=== PATIENT | female | born 1930 | race Hispanic/Latino ===

== ENCOUNTER 2017-01-21 10:25 | Outpatient (CLI) | payer MEDICARE, MEDICAID ==
[2017-01-21 13:59] LABS: #Eosinphils 0.4 thou/uL (0.0-0.7); #Lymphocytes 1.8 thou/uL (1.20-3.40); #Monocytes 0.4 thou/uL (0.11-0.59); #Neutrophils 2.6 thou/uL (1.40-6.50); %Basophils 0.7 % (0.0-1.0); %Eosinophils 7.5 % (0.0-10.0); %Lymphocytes 33.5 % (21.0-51.0); %Monocytes 8.3 % (0.0-10.0); Hematocrit 38.7 % (36.0-47.0); Mean Platelet Volume 8.9 fL (7.4-10.4); Red Blood Cell (RBC) Count 4.01 mill/uL (4.20-5.40); White Blood Cell (WBC) Count 5.2 thou/uL (4.8-10.8)
[2017-01-21 14:25] LABS: Anion Gap 8 mmol/L (10-20); BUN (Urea Nitrogen) 18 mg/dL (9.8-20.1); Calc. Creatinine Clearance 0 mL/min (70-130); Calcium 9.6 mg/dL (7.8-10.44); Carbon Dioxide 30 mmol/L (23-31); Chloride 104 mmol/L (98-107); Estimated GFR-MDRD Greater than 90
--- NOTE | 2017-01-22 16:05 | EKG ---
Test Reason : PREOP Blood Pressure : / mmHG Vent. Rate : 056 BPM Atrial Rate : 056 BPM P-R Int : 174 ms QRS Dur : 080 ms QT Int : 418 ms P-R-T Axes : 051 001 015 degrees QTc Int : 403 ms Sinus bradycardia with sinus arrhythmia Otherwise normal ECG When compared with ECG of 21-MAY-2016 20:43, No significant change was found Confirmed by DR. Zulema DIMAS ([id number]) on 01/22/2017 4:05:04 PM Referred By: JONAS Confirmed By:DR. Zulema DIMAS
== END 2017-01-21 10:26 | disposition home or self-care (01) ==
LOC: LABBT 10:25
PROVIDERS: ATTEND Surgery
DX: Z01.812 Encounter for preprocedural laboratory examination (principal); C50.912 Malignant neoplasm of unspecified site of left female breast
CPT/HCPCS: 80048; 85025; 93005; 93010

== ENCOUNTER 2017-01-22 07:27 | Day surgery (SDC) | payer MEDICARE, MEDICAID ==
[2017-01-21 10:52] VITALS: BMI 27.9
[2017-01-22] MEDS ORDERED: Isosulfan Blue 50 MG/5 ML VIAL ONE (10:59)
[2017-01-22] MEDS ORDERED: Fentanyl 100 MCG/2 ML VIAL ONE ×4 (11:24→15:07)
[2017-01-22] MEDS ORDERED: ePHEDrine/0.9% NaCl/PF SYRINGE 50 mg/10 ml ONE (11:37)
[2017-01-22] MEDS ORDERED: Glycopyrrolate 0.2 MG/ML 5 ML SYRINGE ONE (11:37)
[2017-01-22] MEDS ORDERED: Propofol 200 MG/20 ML VIAL ONE (11:37)
[2017-01-22] MEDS ORDERED: Ondansetron HCl/PF 4 MG/2 ML Vial ONE (11:37)
[2017-01-22] MEDS ORDERED: Dexamethasone 20 MG/5 ML VIAL ONE (11:37)
[2017-01-22] MEDS ORDERED: Lidocaine 2% PF 10 ML AMP (For Epidural Use) ONE (11:37)
--- NOTE | 2017-01-22 11:40 | NM ---
NUCLEAR MEDICINE LYMPHOSCINTIGRAPHY: Date: 01/22/17 HISTORY: 86-year-old female with malignant neoplasm, unspecified site left breast. Bilateral simple mastectom ies. TECHNIQUE/FINDINGS: The patient was injected with 0.440 mCi technetium-99m filtered sulfur colloid subcutaneously in fou r separate locations around the areola. Follow-up imaging demonstrates an intense focus of increased activity within adjacent axillary lymph node. In addition, there is some subtle somewhat more diffuse increased activity extending somewhat cranially, probably in small lymph nodes in the more superior portion of the axilla. IMPRESSION: Successful lymphoscintigraphy. POS: [facility]
[2017-01-22] MEDS ORDERED: Bupivacaine 0.25% HCL 30 ML VIAL ONE (12:04)
[2017-01-22] MEDS ORDERED: Lidocaine 2% w/Epinephrine 1:200K 20 ML VIAL ONE (12:04)
[2017-01-22] MEDS ORDERED: Promethazine HCl 25 MG/ML VIAL IM PRN (14:47)
[2017-01-22] MEDS ORDERED: Promethazine HCl 25 MG/ML VIAL SLOW IVP PRN (14:47)
[2017-01-22] MEDS ORDERED: Ondansetron HCl/PF 4 MG/2 ML Vial IVP PRN (14:47)
[2017-01-22] MEDS ORDERED: hydrALAZINE 20 MG/ML VIAL ONE (15:26)
[2017-01-22] MEDS ORDERED: Fentanyl 100 MCG/2 ML VIAL SLOW IVP PRN (15:49)
[2017-01-22] MEDS ORDERED: traMADol HCl 50 MG TAB PO PRN ×2 (15:49)
[2017-01-22] MEDS ORDERED: hydrALAZINE 20 MG/ML VIAL SLOW IVP SCH (16:00)
[2017-01-22] MEDS: Acetaminophen 1,000 MG in Premix Bag 1 BAG IVPB SCH ×2 (18:36→23:43)
[2017-01-23] MEDS: Acetaminophen 1,000 MG in Premix Bag 1 BAG IVPB SCH ×2 (05:17→11:41)
[2017-01-23 12:57] VITALS: BP 125/78; TEMP 98
--- NOTE | 2017-01-29 18:52 | PDOC.OP ---
Operative Note - Operative Note Operative Note: PROCEDURE: Bilateral mastectomy and left sentinel lymph node biopsy DATE OF PROCEDURE: 01/22/2017 SURGEON: Jae Pineda M.D. 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 Her daughter of breast cancer in her 50s and the patient has decided to proceed with bilateral mastectomy, with sentinel lymph node biopsy on the left for staging. PROCEDURE IN DETAIL: After informed consent was obtained and lymphoscintigraphy performed and reviewed, the patient was taken to the operating room she was placed in supine position and anesthesia by LMA was administered. Appropriate preoperative antibiotic were administered and literature and injected behind the left areola and the breast massaged for 5 minutes. The patient was then prepped and draped in the standard sterile fashion and right mastectomy performed. An elliptical incision including the nipple areolar complex was created and flaps raised superiorly to the level of the clavicle, inferiorly to the level of the rectus sheath and medially to the level of the sternum. The breast tissue was then dissected free of the pectoralis in a medial to lateral fashion and marked for orientation with a long lateral and short superior suture. The wound was irrigated and hemostasis obtained using Bovie electrocautery. A ROC drain was placed laterally and secured to the skin. The subcutaneous tissues and deep dermis were reapproximated with interrupted figure -of-eight Vicryl sutures and the skin was closed with skin herbert. Attention was then turned to the left sentinel lymph node biopsy. Local anesthesia was infused the skin and subcutaneous tissues over the lower edge of the hairbearing skin of the left axilla. An incision was made and dissection carried down to the true axilla. A blue lymph node with increased activity was identified dissected free and sent as sentinel lymph node #1. A second blue lymph node with increased activity was identified dissected free and sent as sentinel lymph node #2. Increased activity was identified and the soft tissues adjacent to sentinel lymph node #2 and 2 separate areas and 2 tiny lymph nodes identified and dissected free. These had increased counts but were not blue. No other areas of significantly increased activity were identified and no other blue lymph nodes or abnormal feeling or looking lymph nodes were noted. The wound was irrigated and examined for hemostasis. The subcutaneous tissues were closed with 3-0 Monocryl sutures and the skin was closed with skin herbert. Attention was then turned to the left mastectomy which was performed in identical manner to the right mastectomy. The left breast was also marked with a long lateral and short superior suture. The skin incisions were dressed with Xeroform and gauze and pressure dressings were placed and secured with Shubham wrap. The patient was extubated and taken to the recovery room in good condition. Estimated blood loss was 50 ml. There were no complications. Specimens are bilateral breasts and left sentinel lymph nodes 4.
== END 2017-01-23 13:02 | disposition home or self-care (01) ==
LOC: SDC 07:27 → SURG A 14:55 → SJJU 16:00 → SDC 01-23 13:02
PROVIDERS: ATTEND Surgery
PROC: 0HTV0ZZ Resection of Bilateral Breast, Open Approach (ICD-10-PCS; principal; 2017-01-22)
PROC: 07B63ZX Excision of Left Axillary Lymphatic, Percutaneous Approach, Diagnostic (ICD-10-PCS; 2017-01-22)
DX: D05.12 Intraductal carcinoma in situ of left breast (principal); I10 Essential (primary) hypertension; F32.9 Major depressive disorder, single episode, unspecified; K21.9 Gastro-esophageal reflux disease without esophagitis; E11.9 Type 2 diabetes mellitus without complications; E78.00 Pure hypercholesterolemia, unspecified; N60.91 Unspecified benign mammary dysplasia of right breast; D24.1 Benign neoplasm of right breast; Z79.84 Long term (current) use of oral hypoglycemic drugs; Z79.899 Other long term (current) drug therapy; Z88.6 Allergy status to analgesic agent; Z88.5 Allergy status to narcotic agent; Z88.0 Allergy status to penicillin; Z88.8 Allergy status to other drugs, medicaments and biological substances; Z96.1 Presence of intraocular lens; Z98.42 Cataract extraction status, left eye; Z98.41 Cataract extraction status, right eye; Z90.3 Acquired absence of stomach [part of]; Z90.49 Acquired absence of other specified parts of digestive tract; Z90.710 Acquired absence of both cervix and uterus; Z98.890 Other specified postprocedural states; Z87.891 Personal history of nicotine dependence
CPT/HCPCS: 19303; 38500; 38900; 78195; 88307; 88309; 88333; 88342; A9541; Q9968; J0131; J0360; J1100; J2001; J2405; J2704; J3010; S0020

== ENCOUNTER 2017-03-14 13:21 | Emergency (ER) | payer MEDICARE, MEDICAID ==
--- NOTE | 2017-03-14 14:21 | RAD ---
AP VIEW CHEST: Date: 03/14/17 HISTORY: Chest pain. FINDINGS: Comparison made to previous exam from 10/10/16. AP view of chest demonstrates left axillary surgical clips seen. The lungs are well aerated. No evide nce of active intrathoracic disease is seen. No evidence of effusions, pneumonia, or pneumothorax see n. Calcification of aorta is noted. IMPRESSION: Left axillary surgical clips. Otherwise unremarkable AP view of chest. POS: [facility]
[2017-03-14 14:46] LABS: #Eosinphils 0.3 thou/uL (0.0-0.7); #Lymphocytes 1.9 thou/uL (1.20-3.40); #Monocytes 0.5 thou/uL (0.11-0.59); #Neutrophils 2.6 thou/uL (1.40-6.50); %Basophils 0.8 % (0.0-1.0); %Eosinophils 6.5 % (0.0-10.0); %Lymphocytes 34.9 % (21.0-51.0); %Monocytes 8.5 % (0.0-10.0); Hematocrit 38.9 % (36.0-47.0); Mean Platelet Volume 8.5 fL (7.4-10.4); Red Blood Cell (RBC) Count 4.02 mill/uL (4.20-5.40); White Blood Cell (WBC) Count 5.3 thou/uL (4.8-10.8)
[2017-03-14 14:54] LABS: PTT 35.1 SEC (22.9-36.1); Prothrombin Time 14.1 SEC (12.0-14.7)
[2017-03-14 15:02] LABS: Lactic Acid - Sepsis 2.6 mmol/L (0.5-2.2)
[2017-03-14 15:07] LABS: ALT (SGPT) 13 U/L (8-55); AST (SGOT) 17 U/L (5-34); Alkaline Phosphatase 45 U/L (40-150); Anion Gap 12 mmol/L (10-20); BUN (Urea Nitrogen) 15 mg/dL (9.8-20.1); Bilirubin, Total 1.6 mg/dL (0.2-1.2); CK (CPK) 32 U/L (29-168); Calc. Creatinine Clearance 0 mL/min (70-130); Calcium 9.5 mg/dL (7.8-10.44); Carbon Dioxide 26 mmol/L (23-31); Chloride 105 mmol/L (98-107); Estimated GFR-MDRD 80; Globulin 2.9 g/dL (2.4-3.5); Lipase 36 U/L (8-78); Protein, Total 6.9 g/dL (6.0-8.3)
[2017-03-14 15:12] LABS: Troponin I Less than 0.010 ng/mL (< 0.028)
--- NOTE | 2017-03-14 15:18 | CT ---
CT BRAIN: Date: 03/14/17 HISTORY: Weakness, dizziness, and altered mental status. FINDINGS: Noncontrast enhanced CT images of the brain demonstrate the brain to be unremarkable. No evidence of intracranial masses, hemorrhages, strokes, or contusions seen. IMPRESSION: Normal CT brain. POS: [facility]
[2017-03-14 15:47] LABS: Bilirubin Negative (Negative); Blood, Urine Negative (Negative); Glucose, Urine (Dipstick) Negative (Negative); Ketone, Urine Negative (Negative); Nitrite Negative (Negative); Protein, Urine (Dipstick) Negative (Neg-Trace); Urobilinogen 0.2 mg/dL (0.2-1.0)
[2017-03-14] MEDS ORDERED: Clopidogrel Bisulfate 75 MG TAB ONE ×2 (16:46→16:49)
[2017-03-14] MEDS ORDERED: Nitroglycerin 2% Ointment 1 INCH/1 GM Packet ONE ×2 (16:46→16:49)
[2017-03-14] MEDS ORDERED: Famotidine 20 MG TAB PO SCH (21:00)
[2017-03-14] MEDS ORDERED: PARoxetine 20 MG TAB PO SCH (21:00)
[2017-03-14] MEDS ORDERED: Atorvastatin Calcium 20 MG TAB PO SCH (21:00)
--- NOTE | 2017-03-15 04:25 | SS ---
PRIMARY CARE PHYSICIAN: Dr. Dm Conway CHIEF COMPLAINT: Dizziness and chest pressure, nausea. HISTORY OF PRESENT ILLNESS: This is an 86-year-old female patient of Dr. Dm Conway's with a history of breast cancer status post bilateral mastectomy, type 2 diabetes, hypertension, and hyperlipidemia who presented to the emergency department today with onset of dizziness. The family and patient stat e that she has been in her usual state of health and usually is very active and able to lift up her g randkids until this morning at about 1:00 a.m. when she tried to get out of bed and had a hard time m oving her head. She was still awake and alert. She denied loss of consciousness. She could moves a ll extremities, but just had a hard time with dizziness and getting herself out of bed. The symptoms resolved spontaneously after a few minutes and then recurred every time she would move her head to t he right. She denied any nausea, vomiting. She denied any diarrhea. Denied chest pain, denied shor tness of breath. She has had on and off episodes of chest pressure, but has a history of severe pept ic ulcer disease, status post gastrectomy. In the emergency department, she had a workup done, every thing was normal. She had a normal CT of the brain, normal EKG, normal cardiac enzymes, normal urina lysis. Upon evaluation, she was found to have a normal exam except for a heart murmur, bradycardia a s well as a positive Correll-Hallpike maneuver. After a long discussion with the patient and the family, they decided to go ahead and be discharged home with Lul maneuvers to be done at home and close fo llowup. If her symptoms worsen she would return to the emergency department at that time for admissi on and further evaluation including a possible MRI of her brain. PAST MEDICAL HISTORY: Type 2 diabetes, hypertension, hyperlipidemia, vitamin D deficiency, peptic ul cer disease, status post gastrectomy, depression, breast cancer status post mastectomy. PAST SURGICAL HISTORY: Cholecystectomy, bilateral mastectomy in 01/2017, hysterectomy, left knee art hroscopy, right rotator cuff repair, right trigger finger release in 2013, gastrectomy for a stomach ulcer in 2013. CURRENT MEDICATIONS: Include atorvastatin 20 mg daily, vitamin D3 2000 units daily, paroxetine 30 mg daily, amlodipine 5 mg daily, ranitidine 150 mg b.i.d., metformin 500 mg b.i.d. ALLERGIES: CODEINE, MORPHINE, PENICILLIN, LISINOPRIL, ASPIRIN and LACTOSE. FAMILY HISTORY: Father with heart disease. Mother . Siblings with heart disease, hypertension, had a child with schizophrenia, breast cancer, hypertension. SOCIAL HISTORY: She lives at home with her daughter and son-in-law. Rare alcohol, no drug use, rare caffeine with coffee intake. No smoking. REVIEW OF SYSTEMS: As per the history of present illness. She denies any recent fevers, chills or r ecent illness. HEENT: Denies headache, positive dizziness, positive pressure in her right ear. CARDIAC: Denies chest pain, shortness of breath or palpitations. RESPIRATORY: She did have a normal cardiac workup from Dr. Avila in 01/2017 prior to her mastectomy. She had a cardiac clearance with negative stress test, normal EF on her echocardiogram with only mil d mitral valve regurg and mild tricuspid regurgitation. PULMONARY: Denies cough, shortness of breath, hemoptysis. GASTROINTESTINAL: Positive for peptic ulcer disease with occasional episodes, better since taking th e ranitidine. GENITOURINARY: No dysuria or hematuria. NEUROLOGIC: As per the history of present illness. MUSCULOSKELETAL: Occasional joint pains. PHYSICAL EXAMINATION: VITAL SIGNS: She is afebrile, heart rate 49-55, respirations 12-15, blood pressure 175/85. GENERAL: She is awake and alert, in no acute distress. Speech is clear. No conversational dyspnea. NECK: Supple. No bruit. HEART: Regular rate and rhythm with a 2/6 systolic ejection murmur at the right sternal border. LUNGS: Clear bilaterally, no wheeze, rales or rhonchi. ABDOMEN: Soft, nontender, nondistended. EXTREMITIES: No clubbing, cyanosis or edema. NEUROLOGIC: Cranial nerves II-XII are grossly intact. Sensation is intact bilaterally. She does harris ve a positive Vasquez-Hallpike with positive nystagmus and reproduction of her dizzy spell with turning h er head to the right. This eventually extinguished within a few minutes. LABORATORY DATA: Urinalysis was normal. White blood cell count 5.3, hemoglobin and hematocrit 12.6 and 38.9, platelets of 180. PT, PTT were normal. D-dimer was less than 0.27. Sodium 139, potassium 4.1, chloride 105, CO2 26, BUN and creatinine 15 and 0.69 with a GFR of 80. Serum glucose was 85. Lactic acid of 2.6, calcium 9.5. AST and ALT are normal. Cardiac enzymes were negative. BNP 49. T SH was normal at 1.6. Chest x-ray showed no active disease. CT of the brain was normal. ASSESSMENT AND PLAN: 1. This is an 86-year-old female with above past medical history with episode of dizziness and weakn ess consistent with benign positional vertigo. I had a long discussion with the patient and family w ith options of being admitted for observation versus going home and they would like to go home. Inst ructions were given for Lul maneuvers to be done 3 times a day until her symptoms resolve. There w ill be close followup later this week and to return to the emergency department if her symptoms worse n. 2. Peptic ulcer disease with chest pressure. Will continue ranitidine, and follow up with Dr. Jimenez . 3. Type 2 diabetes is stable. DISPOSITION: We will discharge home with followup as discussed above.
[2017-03-15] MEDS ORDERED: metFORMIN 500 MG TAB PO SCH (08:00)
[2017-03-15] MEDS ORDERED: Vit A,C & E/Lutein/Minerals Tablet PO SCH (09:00)
== END 2017-03-14 17:59 | disposition home or self-care (01) ==
LOC: ERS 13:21
DX: R53.1 Weakness (principal); R42 Dizziness and giddiness; E11.9 Type 2 diabetes mellitus without complications; E78.5 Hyperlipidemia, unspecified; E78.00 Pure hypercholesterolemia, unspecified; I10 Essential (primary) hypertension; Z87.891 Personal history of nicotine dependence
CPT/HCPCS: 36415; 70450; 71010; 80053; 81003; 82140; 82550; 82553; 83605; 83690; 83880; 84443; 84484; 85025; 85379; 85610; 85730; 87040; 93005; 96360

== ENCOUNTER 2017-04-05 08:42 | Outpatient (CLI) | payer MEDICARE, MEDICAID ==
[2017-04-05] MEDS ORDERED: Iopamidol 370 76% 100 ML VIAL ONE (15:46)
== END 2017-04-05 08:43 | disposition home or self-care (01) ==
LOC: BICCT 08:42
PROVIDERS: ATTEND Family Medicine
DX: R91.1 Solitary pulmonary nodule (principal); I25.10 Atherosclerotic heart disease of native coronary artery without angina pectoris
CPT/HCPCS: 36415; 71260; 82565

== ENCOUNTER 2017-05-13 13:47 | Outpatient (CLI) | payer MEDICARE, MEDICAID | END 2017-05-13 13:48 | disposition home or self-care (01) | LOC: BICULT 13:47 | PROVIDERS: ATTEND Family Medicine | DX: R09.89 Other specified symptoms and signs involving the circulatory and respiratory systems (principal) | CPT/HCPCS: 93880 ==

== ENCOUNTER 2018-10-03 12:23 | Inpatient (IN) | payer MEDICARE, MEDICAID ==
[2018-10-03 13:06] LABS: #Eosinphils 0.3 thou/uL (0.0-0.7); #Lymphocytes 1.6 thou/uL (1.20-3.40); #Monocytes 0.3 thou/uL (0.11-0.59); #Neutrophils 2.6 thou/uL (1.40-6.50); %Basophils 0.9 % (0.0-1.0); %Lymphocytes 32.3 % (21.0-51.0); %Monocytes 6.2 % (0.0-10.0); %Neutrophils 54.7 % (42.0-75.0); Hemoglobin 12.1 g/dL (12.0-16.0); Mean Corpuscular HGB CONC 32.3 g/dL (32.0-36.0); Mean Corpuscular Hemoglobin 30.1 pg (27.0-31.0); Mean Corpuscular Volume 93.4 fL (78.0-98.0); Mean Platelet Volume 8.5 fL (7.4-10.4); Platelet Count 156 thou/uL (130-400); RBC Distribution Width 12.1 % (11.5-14.5); Red Blood Cell (RBC) Count 4.02 mill/uL (4.20-5.40); White Blood Cell (WBC) Count 4.8 thou/uL (4.8-10.8)
[2018-10-03 13:28] LABS: ALT (SGPT) 9 U/L (8-55); AST (SGOT) 16 U/L (5-34); Albumin 4.1 g/dL (3.4-4.8); Alkaline Phosphatase 52 U/L (40-150); Anion Gap 10 mmol/L (10-20); BUN (Urea Nitrogen) 15 mg/dL (9.8-20.1); CK (CPK) 60 U/L (29-168); Calc. Creatinine Clearance 0 mL/min (70-130); Calcium 9.9 mg/dL (7.8-10.44); Carbon Dioxide 31 mmol/L (23-31); Chloride 104 mmol/L (98-107); Estimated GFR-MDRD 79; Globulin 2.9 g/dL (2.4-3.5); Glucose 102 mg/dL (83-110); Potassium 4.6 mmol/L (3.5-5.1); Sodium 140 mmol/L (136-145)
[2018-10-03] MEDS ORDERED: Atropine Sulfate 1 mg/10 ml Syringe ONE (14:35)
--- NOTE | 2018-10-03 18:01 | HP ---
PRIMARY CARE PROVIDER: Dr. Jones. CLINICAL TRIAL SPECIALIST: Dr. Avila. HISTORY OF PRESENT ILLNESS: The patient referred to [facility] by [facility] for symptomatic bradycardia. The patient is alert, cooperative. History is from her and from two of her children, who were present. The patient was fine this morning. On her way to the doctor's office, she became somewhat ataxic. She was having an echocardiogram done for followup of a heart murmur, then her head felt a little heavy, felt weak. She came to the emergency room. She got a dose of atropine, which increased her rate from the 30s to the 80s. She is currently still about 60 +/-. She has felt fine since she had no visual defect, no speech defect, no focal weakness. PAST MEDICAL HISTORY: Hypertension; diabetes mellitus type 2, on oral medications; dyslipidemia; gastroesophageal reflux disease; history of bilateral breast cancer and mastectomies; history of heart murmur, she is not sure which valve. ALLERGIES: CODEINE, HYDROCODONE, LISINOPRIL, MORPHINE, NSAIDS, AND PENICILLINS. MEDICATIONS: 1. Metformin 250 mg once a day. 2. Paxil 20 mg a day. 3. Lipitor 20 mg a day in the evening. 4. Amlodipine 5 mg a day. 5. Zantac 150 mg once a day. 6. Potassium gluconate 550 mg a day. 7. Montelukast 10 mg a day. PAST SURGICAL HISTORY: Right mastectomy about four years ago, left mastectomy a year and a half ago, hysterectomy, cholecystectomy, cataract surgery, right shoulder surgery for rotator cuff, and left laparoscopic knee surgery. FAMILY HISTORY: Multiple members with diabetes mellitus in siblings. She had a daughter, who has of breast cancer. SOCIAL HISTORY: She is . She smoked until 32 years ago, none since. No alcohol. Full code status. For an acute problem, discuss with children, Cortes and Rahul. REVIEW OF SYSTEMS: GENERAL: No fainting. Some dizziness this morning. No fever, chills, headaches. VISION: No double vision, blurred vision, flashing light. EARS, NOSE, AND THROAT: No ear pain or drainage. No nasal bleeding. No trouble swallowing. CARDIAC: No chest pain, orthopnea, or paroxysmal nocturnal dyspnea. RESPIRATIONS: No cough, wheezing, or asthma. GASTROINTESTINAL: No nausea, vomiting, diarrhea, constipation, or abdominal pain. GENITOURINARY: No hematuria or dysuria. MUSCULOSKELETAL: Some swelling in the left leg about a month ago, which resolved. It happened after a car trip. NEUROLOGIC: No stroke, seizures, or focal weakness. PSYCHIATRIC: No anxiety or depression. SKIN: No bruises, bleeding, or rash. HEME AND LYMPH: No tender or swollen lymph nodes in the axilla, inguinal, or cervical area. PHYSICAL EXAMINATION: GENERAL: The patient is alert, oriented, cooperative, pleasant. VITAL SIGNS: Blood pressure 154/70, pulse 59, respirations 19, and temperature 97.8. HEAD, EYES, EARS, NOSE, AND THROAT: Reveal pupils are equal, round, and reactive to light. Extraocular movements are intact. Sclerae are white. Tympanic membranes clear. Nose clear. Oral mucous membranes are wet. Dental hygiene is good. NECK: Supple. No jugular venous distention, adenopathy, or thyromegaly. CHEST: Clear to auscultation and percussion. HEART: Had a regular rate and rhythm. First and second heart sounds are clear. There is a 2/6 systolic murmur, crescendo-decrescendo in the left sternal border. ABDOMEN: Soft. Bowel sounds are normal. There is no hepatosplenomegaly. No mass. No rebound. No bruits. EXTREMITIES: Reveal no cyanosis, clubbing, edema, or calf tenderness. PULSES: Carotid, radial, femoral, and dorsalis pedis pulses intact. SKIN: Warm and dry without bruises or rash. HEME AND LYMPH: No tender or swollen lymph nodes in the axilla, inguinal, or cervical area. NEUROLOGICAL: Cranial nerves 2 through 12 are intact. Deep tendon reflexes are symmetric. Moves all extremities. DIAGNOSTIC STUDIES: IMAGING STUDIES: EKG; mild sinus bradycardia, no acute ST-T abnormality, etc., reviewed by me. Chest x-ray, no cardiomegaly, CHF, or infiltrate, reviewed by me. LABORATORY RESULTS: CBC; white count 4.8, hemoglobin 12.1, platelet count 156,000. Chemistries: Metabolic profile is normal except for an isolated bilirubin of 2.0. Troponin I 0.01 less than. ADMITTING DIAGNOSES: 1. Symptomatic bradycardia. 2. Hypertension. 3. Diabetes mellitus type 2. 4. Aortic stenosis. 5. Dyslipidemia. 6. History of breast cancer. 7. Gastroesophageal reflux disease. PLAN: 1. Monitored bed. 2. Cardiology consult. 3. The patient had echocardiogram today. We will request results from her traffic administrator. 4. Because of the history of swelling in her leg post car trip, we will do venous Doppler of the left leg. 5. History of diabetes mellitus, initially on metformin 500 twice a day, which because of her hemoglobin A1c was less than 6, reduced to 500 mg a day, subsequently to 250 mg a day. Her blood sugar is still on the low side at 79. Her diabetes mellitus, hemoglobin A1c will be obtained. Accu-Cheks will be monitored. I have discussed potential for a pacemaker with the patient and the family. Job ID: [id number]
[2018-10-03] MEDS ORDERED: Atropine Sulfate 1 mg/10 ml Syringe IVP PRN (18:03)
[2018-10-03] MEDS ORDERED: Zolpidem Tartrate 5 MG TAB PO PRN (18:03)
[2018-10-03] MEDS ORDERED: Dextrose 50% Abboject 50 ML SYRINGE SLOW IVP PRN (18:03)
[2018-10-03] MEDS ORDERED: Dextrose 5% in Water 1,000 ML IV PRN (18:03)
[2018-10-03] MEDS ORDERED: Acetaminophen 325 MG TAB PO PRN (18:03)
[2018-10-03] MEDS ORDERED: Ondansetron ODT 4 MG TAB PO PRN (18:03)
[2018-10-03 18:08] VITALS: BMI 29.2
[2018-10-03 18:33] LABS: Hemoglobin A1c 5.8 % (4.0-6.0)
[2018-10-03] MEDS: Amlodipine 5 MG TAB PO SCH (20:48)
[2018-10-03] MEDS: Atorvastatin Calcium 20 MG TAB PO SCH (20:49)
[2018-10-03] MEDS: Famotidine 20 MG TAB PO SCH ×2 (20:49→20:55)
[2018-10-04 04:49] LABS: #Eosinphils 0.4 thou/uL (0.0-0.7); #Monocytes 0.4 thou/uL (0.11-0.59); #Neutrophils 2.6 thou/uL (1.40-6.50); %Basophils 0.5 % (0.0-1.0); %Eosinophils 6.6 % (0.0-10.0); %Lymphocytes 37.4 % (21.0-51.0); %Monocytes 7.5 % (0.0-10.0); Hemoglobin 11.7 g/dL (12.0-16.0); Mean Corpuscular HGB CONC 31.8 g/dL (32.0-36.0); Mean Corpuscular Hemoglobin 29.9 pg (27.0-31.0); Mean Corpuscular Volume 93.9 fL (78.0-98.0); Mean Platelet Volume 9.4 fL (7.4-10.4); Platelet Count 153 thou/uL (130-400); Red Blood Cell (RBC) Count 3.92 mill/uL (4.20-5.40); White Blood Cell (WBC) Count 5.5 thou/uL (4.8-10.8)
[2018-10-04 05:10] LABS: Anion Gap 10 mmol/L (10-20); BUN (Urea Nitrogen) 20 mg/dL (9.8-20.1); Calc. Creatinine Clearance 71 mL/min (70-130); Calcium 9.5 mg/dL (7.8-10.44); Carbon Dioxide 27 mmol/L (23-31); Chloride 106 mmol/L (98-107); Estimated GFR-MDRD 84; Glucose 106 mg/dL (83-110); Potassium 4.2 mmol/L (3.5-5.1); Sodium 139 mmol/L (136-145)
--- NOTE | 2018-10-04 07:58 | ULT ---
Left lower extremity venous Doppler ultrasound: 10/04/2018 COMPARISON: None HISTORY: Swelling, edema, assess for DVT TECHNIQUE: Multiplanar grayscale sonographic imaging of the venous structures of the left lower extre mity obtained with color flow and spectral analysis FINDINGS: Left common femoral vein, greater saphenous vein, profunda femoral vein, femoral vein, popl iteal vein, and posterior tibial vein are patent. Normal blood flow, augmentation, and compression within the deep venous system on the left. No evidence for deep venous thrombosis. IMPRESSION: No evidence for deep venous thrombosis of the left lower extremity.
[2018-10-04] MEDS: Famotidine 20 MG TAB PO SCH ×2 (08:32→21:35)
[2018-10-04] MEDS: Sodium Chloride 0.9% 1,000 ML IV SCH ×2 (10:38→21:33)
--- NOTE | 2018-10-04 13:15 | PDOC.PN ---
- Subjective Encounter Start Date: 10/04/18 Encounter Start Time: 13:14 Subjective: ok - Objective Resuscitation Status - Order Detail: 10/03/18 16:35 Resuscitation Status Routine Resuscitation Status: FULL: Full Resuscitation Discussed with: children Rahul and Na RAMIREZ Reviewed: Yes Vital Signs & Weight: Vital Signs (12 hours) Temp Pulse Resp BP Pulse Ox 10/04/18 11:47 98.0 F 55 L 18 145/75 H 96 10/04/18 07:00 98.0 F 46 L 18 154/69 H 95 10/04/18 03:48 98.0 F 50 L 16 155/67 H 95 Weight Weight 168 lb I&O: 10/03/18 10/04/18 10/05/18 06:59 06:59 06:59 Intake Total 750 Output Total 225 900 Balance 525 -900 Result Diagrams: 10/04/18 04:10 10/04/18 04:10 Additional Labs: Accuchecks 10/04/18 10/03/18 10:50 20:57 POC Glucose 109 92 Phys Exam - Physical Examination Neck: no JVD Respiratory: clear to auscultation bilateral Cardiovascular: RRR bradycardia. 2/6 sys murmur Gastrointestinal: soft, positive bowel sounds Musculoskeletal: no edema Dx/Plan (1) Symptomatic sinus bradycardia Code(s): R00.1 - BRADYCARDIA, UNSPECIFIED Status: Acute (2) Aortic stenosis Code(s): I35.0 - NONRHEUMATIC AORTIC (VALVE) STENOSIS Status: Chronic Qualifiers: Cardiac valve disease etiology: etiology unspecified Qualified Code(s): I35.0 - Nonrheumatic aortic (valve) stenosis (3) DM type 2 (diabetes mellitus, type 2) Status: Chronic Qualifiers: Diabetes mellitus intermediate manager insulin use: with mcfp use Diabetes mellitus complication status: without complication Qualified Code(s): E11.9 - Type 2 diabetes mellitus without complications; Z79.4 - director long term care (current) use of insulin (4) HTN (hypertension) Code(s): I10 - ESSENTIAL (PRIMARY) HYPERTENSION Status: Chronic Qualifiers: Hypertension type: essential hypertension Qualified Code(s): I10 - Essential (primary) hypertension - Plan pacemaker tomorrow -: selected home meds home meds -: HgA1c 5.8- DC metformin * .
--- NOTE | 2018-10-04 14:46 | CON ---
DATE OF CONSULTATION: HISTORY OF PRESENT ILLNESS: Lizet Rodgers is an 88-year-old female , patient of Dr. Avila. Dr. Avila first evaluated her in 10/2016 for a systolic murmur. No specific abnormalities were found on echocardiogram. She returned on 09/19/18 for 2-year followup. Her daughter gives history of 2 years of episodes of extreme weakness and dizziness. Some of these episodes will last 2- 3 days. Various medications have been adjusted including stopping losartan and reducing dose of metformin, but she continued to have episodes. Yesterday, she came to the office for an echocardiogram and while walking back to the car was extremely weak. She was apparently taken to an urgent care clinic and heart rate was 31 or 32 per minute according to the daughter. She was given intravenous atropine and then transferred here. The lowest heart rate I have found here is 45 per minute. Ms. Rodgers denies any chest discomfort, shortness of breath, or PND. She did have some left leg edema after a trip 2-3 weeks ago that lasted for 2 days, but then resolved. PAST MEDICAL HISTORY: Hypertension, diabetes, hyperlipidemia, GERD, heart murmur, history of bilateral breast cancer and mastectomy. MEDICATIONS: 1. Paxil 30 at bedtime. 2. Amlodipine 5 mg at bedtime. 3. Atorvastatin 20 at bedtime. 4. Metformin 500 b.i.d. 5. Singulair 10 mg at bedtime. 6. Ranitidine 150 daily. ALLERGIES: CODEINE. LISINOPRIL CAUSES A COUGH. MORPHINE CAUSES PAIN. NSAIDS CAUSE GASTRIC ULCER AND PENICILLIN CAUSED A RASH. PAST SURGICAL HISTORY: Bilateral mastectomies, hysterectomy, cholecystectomy, bilateral cataract surgery, right shoulder surgery for rotator cuff, left arthroscopic knee surgery. SOCIAL HISTORY: She smoked in the past. Stopped over 30 years ago. She does not drink alcohol. FAMILY HISTORY: Unremarkable for coronary artery disease. REVIEW OF SYSTEMS: A 12-point review of systems is otherwise unremarkable. PHYSICAL EXAMINATION: VITAL SIGNS: Blood pressure 154/69, pulse of 46. HEENT: PERRLA. NECK: Supple. CHEST: Clear. CARDIAC: S1 and S2 normal without any S3 or S4. There is a 2/6 systolic ejection murmur in the aortic area radiating to the carotids. Carotid upstroke is normal with left greater than right carotid artery bruit versus transmitted murmur. ABDOMEN: Normal bowel sounds without tenderness or organomegaly. EXTREMITIES: Revealed no clubbing, cyanosis, or edema. NEUROLOGIC: Grossly intact. SKIN: Warm and dry. LABORATORY DATA: EKG revealed sinus bradycardia with heart rate of 48 per minute and evidence for left ventricular hypertrophy, lowest heart rate on the monitor here has been 45 per minute. Lower extremity ultrasound revealed no evidence of deep venous thrombosis. Echocardiogram in the office revealed ejection fraction of 55-60%, evidence for diastolic dysfunction, moderate mitral annular calcification, mild mitral regurgitation, mild aortic stenosis and mild tricuspid regurgitation. Carotid Doppler revealed atherosclerotic plaquing and approximately 50% stenosis in the left external carotid artery. Hemoglobin 11.7, hematocrit 36.8, white count 5,500, platelets 153,000. Sodium 139, potassium 4.2, chloride 106, carbon dioxide 27, BUN 20, creatinine 0.66. Troponin I is normal. IMPRESSION: 1. Symptomatic bradycardia. Historically, it sounds as if she has been having episodes for the past 2 years with extreme weakness. The daughter states that she has also had some falls, but it does not sound as if she has had true syncope. Yesterday, she had heart rates as low as 31 and 32 per minute. 2. Hypertension. 3. Hypercholesterolemia. 4. Mild aortic stenosis. 5. Diabetes. 6. Bilateral carotid artery bruits without significant internal carotid stenosis seen on Doppler. She did have a 50% left external carotid stenosis. RECOMMENDATIONS: Ms. Rodgers will undergo pacemaker insertion. Risks of this were discussed with the patient, her son, and daughter including , infection, bleeding, blood clot formation, pneumothorax, cardiac tamponade with surgical drainage, reoperation for lead dislodgement, etc. She understands and is agreeable to proceed. Job ID: [id number] [facility]
[2018-10-04] MEDS ORDERED: metFORMIN 500 MG TAB PO SCH (17:00)
[2018-10-04] MEDS: PARoxetine 20 MG TAB PO SCH (21:34)
[2018-10-04] MEDS: Amlodipine 5 MG TAB PO SCH (21:35)
[2018-10-04] MEDS: Montelukast Sodium 10 mg Tablet PO SCH (21:36)
[2018-10-04] MEDS: Atorvastatin Calcium 20 MG TAB PO SCH (21:36)
[2018-10-04] MEDS ORDERED: Mag-Al 1200 mg/1200 mg/30 ML UDCUP PO SCH (22:30)
[2018-10-05] MEDS ORDERED: Clindamycin/D5W 600 mg/50 ml Premix Bag ONE (07:05)
[2018-10-05] MEDS ORDERED: Levofloxacin 500 mg/D5W 100 ml Premix Bag ONE (07:06)
[2018-10-05] MEDS ORDERED: Midazolam HCl 2 mg/2 ml Vial ONE (07:09)
[2018-10-05] MEDS ORDERED: Fentanyl 100 MCG/2 ML VIAL ONE (07:09)
[2018-10-05] MEDS ORDERED: Lidocaine 1% (PF) 30 ML VIAL ONE (07:15)
[2018-10-05] MEDS: Sodium Chloride 0.9% 1,000 ML IV SCH (09:00)
[2018-10-05] MEDS ORDERED: diphenhydrAMINE 25 MG CAP PO PRN (09:11)
--- NOTE | 2018-10-05 09:19 | RAD ---
PORTABLE CHEST ONE VIEW: 10/05/2018 8:32 a.m. HISTORY: Post cardiac device placement. COMPARISON: 06/10/2017 FINDINGS: There has been interval placement of a left-sided pacemaker device with bipolar leads in the right at rium and right ventricle. Heart size is normal. Aorta is tortuous. Lungs are well expanded without lobar consolidation, pneumothoraces, or pleural effusions. There are postop changes of right rotato r cuff repair. Surgical clips are again seen in the left axilla. IMPRESSION: No acute process. POS: [place]
--- NOTE | 2018-10-05 09:52 | PDOC.PN ---
- Subjective Encounter Start Date: 10/05/18 Encounter Start Time: 09:51 Subjective: post pacemaker this AM, fine - Objective Resuscitation Status - Order Detail: 10/03/18 16:35 Resuscitation Status Routine Resuscitation Status: FULL: Full Resuscitation Discussed with: children Rahul and Na RAMIREZ Reviewed: Yes Vital Signs & Weight: Vital Signs (12 hours) Temp Pulse Resp BP BP Pulse Ox 10/05/18 04:00 98.1 F 48 L 18 150/67 H 96 10/04/18 23:48 98.2 F 50 L 12 169/72 H 95 Weight Weight 168 lb I&O: 10/04/18 10/05/18 10/06/18 06:59 06:59 06:59 Intake Total 750 1300 Output Total 225 1800 Balance 525 -500 Result Diagrams: 10/04/18 04:10 10/04/18 04:10 Additional Labs: Accuchecks 10/05/18 10/04/18 10/04/18 06:06 20:35 16:41 POC Glucose 109 105 117 H 10/04/18 10:50 POC Glucose 109 Phys Exam - Physical Examination Neck: no JVD Respiratory: clear to auscultation bilateral Cardiovascular: RRR, no significant murmur Gastrointestinal: soft, positive bowel sounds Musculoskeletal: no edema Dx/Plan (1) Symptomatic sinus bradycardia Code(s): R00.1 - BRADYCARDIA, UNSPECIFIED Status: Acute (2) Aortic stenosis Code(s): I35.0 - NONRHEUMATIC AORTIC (VALVE) STENOSIS Status: Chronic Qualifiers: Cardiac valve disease etiology: etiology unspecified Qualified Code(s): I35.0 - Nonrheumatic aortic (valve) stenosis (3) DM type 2 (diabetes mellitus, type 2) Status: Chronic Qualifiers: Diabetes mellitus exterminator insulin use: with exterminator use Diabetes mellitus complication status: without complication Qualified Code(s): E11.9 - Type 2 diabetes mellitus without complications; Z79.4 - medical terminologist (current) use of insulin (4) HTN (hypertension) Code(s): I10 - ESSENTIAL (PRIMARY) HYPERTENSION Status: Chronic Qualifiers: Hypertension type: essential hypertension Qualified Code(s): I10 - Essential (primary) hypertension - Plan post pacemaker, home tomorrow * .
[2018-10-05] MEDS: Famotidine 20 MG TAB PO SCH ×2 (10:04→20:28)
[2018-10-05] MEDS: cefTRIAXone\\ROCEPHIN 1 GM in Sodium Chloride 0.9% 100 ML IVPB SCH (12:21)
--- NOTE | 2018-10-05 12:56 | CCL ---
PERMANENT PACEMAKER INSERTION USING FLUOROSCOPY: 10/05/18 PROCEDURE: MRI compatible dual chamber pacemaker placement. INDICATION: Severe sinus bradycardia with heart rates as low as 32 per minute and weakness and dizziness. DESCRIPTION OF PROCEDURE: The patient was brought to the [facility]. She had had bilateral mastectomies and sentinel lymph node biopsy on the left but had no history of edema of the left arm. The left subclavian area was prepped and draped in the usual fashion. 1% Lidocaine was infiltrated. A J-wire was placed into the left subclavian vein and advanced into the superior vena cava. Pacemaker pocket was manufactured using blunt and sharp dissection with electrocautery for hemostasis. An antibiotic solution soaked 4x4 gauze was placed in the subcutaneous pocket. A second J-wire was placed into the subclavian vein. Using a 7-Ukrainian peel away sheath, the atrial and ventricular leads were inserted. The ventricular lead was advanced to the RV apex and screwed into place. The right atrial lead was screwed into the right atrium. Right ventricular lead: R-wave 8.6, impedance 715, threshold 0.5 volts. For the atrial lead, the P-wave was 1.8, impedance 699, threshold 0.9 volts. With pacing at 10 volts, there was no diaphragmatic stimulation or muscle stimulation from either of the wires. The tabs on the suture tie-downs were removed and both leads were secured in place with two sutures of 0 silk. The antibiotic solution soaked gauze was removed from the pocket and this was irrigated with copious amounts of antibiotic solution. The leads were attached to the pacemaker generator and this was placed into the pocket and secured in place with one suture of 0 silk. The incision was then closed using two layers of running 3-0 Vicryl, one layer of running 4-0 Vicryl. Dermabond was placed. The patient tolerated the procedure well. KM
[2018-10-05] MEDS ORDERED: Ciprofloxacin 500 MG TAB PO SCH (20:00)
[2018-10-05] MEDS ORDERED: Cipro 250 MG TAB PO SCH (20:00)
[2018-10-05] MEDS: PARoxetine 20 MG TAB PO SCH ×2 (20:26→20:27)
[2018-10-05] MEDS: Montelukast Sodium 10 mg Tablet PO SCH (20:27)
[2018-10-05] MEDS: Atorvastatin Calcium 20 MG TAB PO SCH (20:28)
[2018-10-05] MEDS: Cefdinir 300 MG CAP PO SCH (20:28)
[2018-10-05] MEDS: Amlodipine 5 MG TAB PO SCH (20:29)
[2018-10-06 05:48] LABS: Cardiac Risk 2.4 (Less than 4.5)
[2018-10-06] MEDS: Famotidine 20 MG TAB PO SCH (09:38)
[2018-10-06] MEDS: Cefdinir 300 MG CAP PO SCH (09:38)
[2018-10-06] MEDS: cefTRIAXone\\ROCEPHIN 1 GM in Sodium Chloride 0.9% 100 ML IVPB SCH (15:03)
[2018-10-06 16:36] VITALS: BP 163/76; TEMP 98.7
--- NOTE | 2018-10-06 16:52 | EKG ---
Test Reason : Blood Pressure : / mmHG Vent. Rate : 062 BPM Atrial Rate : 062 BPM P-R Int : 178 ms QRS Dur : 082 ms QT Int : 406 ms P-R-T Axes : 087 009 021 degrees QTc Int : 412 ms Electronic atrial pacemaker normal otherwise Confirmed by DR. Claude MOTA ([id number]) on 10/06/2018 4:52:08 PM Referred By: FEDERICO Confirmed By:DR. Claude MOTA
--- NOTE | 2018-10-07 10:11 | DIS ---
DATE OF ADMISSION: 10/04/2018 DATE OF DISCHARGE: 10/06/2018 DISCHARGE DISPOSITION: Home. DISCHARGE FOLLOWUP: 1. Follow up with primary care physician, Dr. Jones, in 1 week. 2. Follow up with Dr. Reyes for pacemaker check. DISCHARGE MEDICATIONS: 1. Toprol-XL 50 mg daily. Please note that the patient refused Toprol on the day of discharge. 2. Metformin 500 mg b.i.d. 3. Omnicef 300 mg b.i.d. for prophylaxis. 4. Amlodipine 5 mg at bedtime. 5. Lipitor 20 mg at bedtime. 6. Singulair 10 mg at bedtime. 7. Ranitidine 150 mg daily. 8. Paxil 30 mg at bedtime. 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 Reyes. INPATIENT PROCEDURES: On October 05, 2018, the patient underwent MRI compatible dual-chamber pacemaker placement for severe sinus bradycardia. DISCHARGE CONDITION: The patient was seen on the day of discharge. Denies any new complaints. No chest pain, shortness of breath, or palpitations reported. Pacemaker site without any hematoma or swelling. BRIEF HOSPITAL COURSE: The patient is an 88-year-old female with hypertension, diabetes mellitus type 2, and hyperlipidemia, presented to the hospital with low heart rate. She received a dose of atropine in the ER. Please refer to the H and P and progress note by Dr. Charlotte Davis for details. I assumed the care of this patient on the day of discharge. The patient was monitored on the telemetry unit. She underwent dual-chamber pacemaker placement for symptomatic bradycardia. She did well overnight after the pacemaker placement. Toprol-XL was added by Dr. Reyes; however, the family is concerned that it may drop her blood pressure. The patient did not take Toprol on the day of discharge. I, however, sent a prescription to the pharmacy. The daughter will monitor her blood pressure at home and will decide if Toprol is needed. Plan of care was discussed with the patient and the family in detail. They stated understanding. FINAL DIAGNOSES: 1. Generalized weakness secondary to symptomatic bradycardia, status post dual-chamber MRI compatible pacemaker placement. 2. Hypertension. 3. Hyperlipidemia. 4. Diabetes mellitus type 2. 5. History of bilateral carotid stenosis. Primary care physician advised to follow. 6. Chronic kidney disease, stage 2. 7. Abnormal LFTs of unclear etiology. Her total bilirubin was 2 on admission without any abnormalities with AST, ALT, and alkaline phosphatase. SIGNIFICANT LABORATORY DATA: Hemoglobin A1c 5.8. Fasting lipid showed cholesterol 124, LDL 58, triglycerides 72, HDL of 52. PLAN: Plan was discussed with the patient and the daughter in detail. They stated understanding. Job ID: [id number]
--- NOTE | 2018-10-08 13:07 | EKG ---
Test Reason : Blood Pressure : / mmHG Vent. Rate : 048 BPM Atrial Rate : 048 BPM P-R Int : 150 ms QRS Dur : 070 ms QT Int : 414 ms P-R-T Axes : 009 -17 012 degrees QTc Int : 369 ms Sinus bradycardia Voltage criteria for left ventricular hypertrophy Abnormal ECG Confirmed by SAUL JARAMILLO, JOLIE Torres ([id number]), continuity editor NANCY BREWER ([id number]) on 10/08/2018 1:07:21 PM Referred By: Confirmed By:JOLIE HUGHES MD
== END 2018-10-06 17:00 | disposition home or self-care (01) | DRG 244 ==
LOC: ERS 12:23 → 2SW 15:00 → OBSVTOIN 10-04 11:11 → 2NO 10-05 17:43
PROVIDERS: ADMIT Family Medicine; ATTEND Family Medicine
PROC: 0JH606Z Insertion of Pacemaker, Dual Chamber into Chest Subcutaneous Tissue and Fascia, Open Approach (ICD-10-PCS; principal; 2018-10-05)
PROC: 02HK3JZ Insertion of Pacemaker Lead into Right Ventricle, Percutaneous Approach (ICD-10-PCS; 2018-10-05)
PROC: 02H63JZ Insertion of Pacemaker Lead into Right Atrium, Percutaneous Approach (ICD-10-PCS; 2018-10-05)
DX: R00.1 Bradycardia, unspecified (principal); I10 Essential (primary) hypertension; E11.9 Type 2 diabetes mellitus without complications; E78.5 Hyperlipidemia, unspecified; K21.9 Gastro-esophageal reflux disease without esophagitis; I35.0 Nonrheumatic aortic (valve) stenosis; R09.89 Other specified symptoms and signs involving the circulatory and respiratory systems; Z85.3 Personal history of malignant neoplasm of breast; Z88.5 Allergy status to narcotic agent; Z88.8 Allergy status to other drugs, medicaments and biological substances; Z88.0 Allergy status to penicillin; Z79.899 Other long term (current) drug therapy; Z79.84 Long term (current) use of oral hypoglycemic drugs; Z90.710 Acquired absence of both cervix and uterus; Z90.49 Acquired absence of other specified parts of digestive tract; Z87.891 Personal history of nicotine dependence
CPT/HCPCS: 33208; 36415; 36416; 71045; 80048; 80053; 80061; 82550; 83036; 84484; 85025; 93005; 93010; 93798; 99152; C1785; C1898; J0461; J0696; J1956; J2001; J2250; J3010; J3370; J3490; Q0163

== ENCOUNTER 2018-12-15 10:50 | Outpatient (CLI) | payer MEDICARE, MEDICAID ==
--- NOTE | 2018-12-15 13:41 | CT ---
CT CHEST AND ABDOMEN AND PELVIS WITH INTRAVENOUS CONTRAST: HISTORY: Breast cancer followup. COMPARISON: CT of the chest performed on 04/05/2017. CT angio chest and abdomen performed on 10/10/2016. FINDINGS: CHEST: The lungs are clear of any infiltrative process. There are no pulmonary nodules identified. No pleural effusions. No significant mediastinal, hilar, or axillary lymphadenopathy is noted. Postoperative changes of the left axilla are seen. ABDOMEN AND PELVIS: The liver, spleen, and pancreas regions are unremarkable. Post cholecystectomy ch anges are seen. The right and left adrenal glands are normal. Tiny hypodensities involving the kidneys are statistica lly most likely small cysts. There is no significant periaortic or mesenteric adenopathy. Colonic div erticulosis is noted, most pronounced in the sigmoid region. A moderate amount of stool is preset. No pelvic lymphadenopathy or mass. Review of the osseous structures show arthritic changes of the spine. No lytic or blastic bony change . IMPRESSION: 1. Post cholecystectomy change. 2. No evidence for metastatic disease. POS: [facility]
[2018-12-15] MEDS ORDERED: ISOVUE-370 76%-LOCM 1 ML ONE (18:15)
== END 2018-12-15 10:51 | disposition home or self-care (01) ==
LOC: BICCT 10:50
PROVIDERS: ATTEND Internal Medicine Hematology & Oncology
DX: C50.111 Malignant neoplasm of central portion of right female breast (principal); C50.212 Malignant neoplasm of upper-inner quadrant of left female breast; Z90.49 Acquired absence of other specified parts of digestive tract
CPT/HCPCS: 71260; 74177; 82565; Q9966

== ENCOUNTER 2019-02-22 09:30 | Outpatient (CLI) | payer MEDICARE, MEDICAID ==
--- NOTE | 2019-02-22 14:33 | MRI ---
MRI BRAIN WITHOUT CONTRAST: HISTORY: An 88-year-old female with right sided weakness. FINDINGS: No restricted diffusion is seen. There are multiple foci of T2 prolongation in the periventricular wh ite matter, consistent with chronic small vessel ischemic disease. The ventricular size is appropriat e and the basilar cisterns are patent. No evidence of infarct, hemorrhage, midline shift or abnormal extraaxial fluid collections is noted. There is fluid in the mastoid air cells bilaterally. IMPRESSION: No evidence of acute intracranial process. POS: [facility]
--- NOTE | 2019-02-22 15:49 | MRI ---
MRI OF CERVICAL SPINE PERFORMED WITHOUT CONTRAST ENHANCEMENT: 02/22/19 HISTORY: Neck pain and right sided arm pain. Vertebral bodies are normal in height. There is marked disc narrowing at C3-4, C4-5 and C5-6. Moderat e motion artifact on this examination. Cord signal change is felt to be within normal limits. Difficu lt to assess due to motion. C2-3: Unremarkable. C3-4: Some moderate degree of canal stenosis and some mild to moderate left foraminal narrowing. C4-5: Minimal anterolisthesis seen at this level. There is posterior osteophytic bar and moderately s evere canal stenosis also marked bilateral foraminal narrowing. C5-6: Posterior osteophyte and disc changes are again associated with severe canal stenosis with mode rate bilateral foraminal narrowing. C6-7: There is a mild degree of canal stenosis at this level. There is bilateral foraminal narrowing which appears to be moderate on the left. C7-T1: No significant canal or foraminal stenosis. IMPRESSION: Multilevel areas of canal and foraminal stenosis. The canal stenosis is particularly severe at C4-5 a nd C5-6. POS: [facility]
== END 2019-02-22 09:31 | disposition home or self-care (01) ==
LOC: MRI 09:30
PROVIDERS: ATTEND Family Medicine
DX: R53.1 Weakness (principal); M48.02 Spinal stenosis, cervical region
CPT/HCPCS: 70551; 72141